=== PATIENT | female | born 1930 | race Asian ===

== ENCOUNTER 2017-02-08 12:24 | Inpatient (IN) | payer MEDICARE, MEDICAID ==
[~2017-02-08] VITALS: Ht 152.4 cm; Wt 72.4 kg
[~2017-02-08 12:24] MED LIST: AMLO-512 PO; BACTDSB PO; CALC500T62 PO; DOCU100C19 PO; ESCI20TA PO; FAMO-39 PO; HYDR25TA PO; LOVA40TA2 PO; MIRT30 PO; MOM30 PO; OLME40 PO
[2017-02-08] MEDS ORDERED: 0.9% SODIUM CHLORIDE 10 ML SYRINGE IVP PRN ×2 (13:15→16:00)
[2017-02-08 13:17] LABS: GLUCOSE,POINT OF CARE 177 MG/DL (70-110)
[2017-02-08 13:34] LABS: BASOPHILS % (AUTO) 0.4 % (0.0-2.0); EOSINOPHILS % (AUTO) 0.1 % (1.0-6.0); HEMATOCRIT 39.9 % (36-46); HEMOGLOBIN 13.2 g/dL (12.0-16.0); LYMPHOCYTES # (AUTO) 1.3 K/uL (1.0-4.8); LYMPHOCYTES % (AUTO) 10.9 % (22.0-44.0); MEAN CORPUSCULAR HEMOGLOBIN 30.1 pg (26.0-34.0); MEAN CORPUSCULAR HGB CONC 33.1 G/dL (31.0-37.0); MEAN CORPUSCULAR VOLUME 91 fL (80-100); MONOCYTES # (AUTO) 0.6 K/uL (0.1-1.0); MONOCYTES % (AUTO) 4.6 % (2.0-9.0); NEUTROPHILS # (AUTO) 10.3 K/uL (1.8-7.7); PLATELET COUNT (AUTO) 195 K/uL (150-450); RED CELL DISTRIBUTION WIDTH 15.2 % (11.5-14.5); WHITE BLOOD COUNT (AUTO) 12.3 K/uL (4.5-11.0)
[2017-02-08 13:54] LABS: ANION GAP 6 mmol/L (8-16); CALCIUM, TOTAL 9.1 mg/dL (8.8-10.5); CARBON DIOXIDE 38 mmol/L (22-29); CHLORIDE 98 mmol/L (98-107); CREATININE 2.14 mg/dL (0.60-1.30); GLOMERULAR FILTR. RATE CALC 22 mL/min (>60); POTASSIUM 3.3 mmol/L (3.5-5.1); SODIUM SERUM 142 mmol/L (136-145); UREA NITROGEN, BLOOD 38 mg/dL (7-18)
[2017-02-08 13:59] LABS: ALANINE AMINOTRANSFERASE 75 U/L (12-78); ASPARTATE AMINOTRANSFERASE 48 U/L (15-37); BILIRUBIN,TOTAL 0.7 mg/dL (0.1-1.0); TOTAL PROTEIN, SERUM 7.5 g/dL (6.4-8.2)
[2017-02-08 14:07] LABS: B-TYPE NATRIURETIC PEPTIDE 108 pg/mL (0-100)
[2017-02-08 14:18] LABS: LACTIC ACID 2.2 mmol/L (0.4-2.0)
[2017-02-08] MEDS ORDERED: ACETAMINOPHEN 325 MG RECTAL SUPPOSITORY PR ONE (14:45)
[2017-02-08] MEDS ORDERED: VANCOMYCIN HCL 1 GM/D5% WATER 200 ML IV ONE (14:45)
[2017-02-08] MEDS ORDERED: PIPERACILLIN/TAZO 3.375 GM/D5W 50 ML IV ONE (14:45)
[2017-02-08 15:28] LABS: REFLEX LACTIC ACID? YES YES
[2017-02-08] MEDS ORDERED: ONDANSETRON HCL 4 MG/2 ML VIAL IVP PRN (16:00)
[2017-02-08] MEDS ORDERED: ACETAMINOPHEN 325 MG TABLET PO PRN (16:00)
[2017-02-08 16:07] LABS: ABG A-A DIFF O2 228.6 mmHg (10-20.0); ABG HCO3 30.9 mmol/L (22.0-26.0); ABG OXYHEMOGLOBIN 89.4 % (94.0-100.0); ABG PCO2 58 mmHg (35-45); ABG PH 7.385 (7.35-7.450); ALLEN TEST, BLOOD GAS Positive; TEMPERATURE, FAHRENHEIT, BG 98.6 FAHREN (96.0-98.6)
[2017-02-08] MEDS ORDERED: POTASSIUM CHLORIDE 20 MEQ ER TABLET PO ONE (18:45)
[2017-02-08 19:07] VITALS: BP 119/59
[2017-02-08] MEDS ORDERED: OXYGEN THERAPY IH SCH (20:00)
[2017-02-09] VITALS (8 sets, daily range): BP systolic 100–134; BP diastolic 50–69
[2017-02-09] MEDS ORDERED: PIPERACILLIN SODIUM/TAZOBACTAM 2.25 GM in DEXTROSE 5%-WATER 50 ML IV SCH ×2
[2017-02-09] MEDS ORDERED: SODIUM CHLORIDE 0.9% 250 ML IV ONE (00:40)
[2017-02-09 07:36] LABS: CALCIUM, TOTAL 8.4 mg/dL (8.8-10.5); CREATININE 1.6 mg/dL (0.60-1.30); POTASSIUM 3.5 mmol/L (3.5-5.1)
[2017-02-09 08:41] LABS: APPEARANCE,URINE TURBID (CLEAR); GLUCOSE, URINE (UA) NEGATIVE (NEGATIVE); KETONES,URINE NEGATIVE (NEGATIVE); LEUKOCYTE ESTERASE ,URINE NEGATIVE (NEGATIVE); OCCULT BLOOD,URINE TRACE (NEGATIVE); PROTEIN,URINE POS 1+ (NEGATIVE)
[2017-02-09 08:50] LABS: ADD UA MICROSCOPIC YES
[2017-02-09 08:51] LABS: RBC,URINE 0-2 /HPF (0-2); SQUAMOUS EPITHELIAL CELL,UR Few /LPF (None Seen); WBC,URINE None Seen /HPF (0-5)
[2017-02-09 09:26] LABS: BASOPHILS # (AUTO) 0.02 K/uL (0.00-0.20); BASOPHILS % (AUTO) 0.2 % (0.0-2.0); EOSINOPHILS # (AUTO) 0.03 K/uL (0.00-0.70); EOSINOPHILS % (AUTO) 0.33 % (1.0-6.0); HEMATOCRIT 38.4 % (36-46); HEMOGLOBIN 12.4 g/dL (12.0-16.0); LYMPHOCYTES # (AUTO) 0.8 K/uL (1.0-4.8); LYMPHOCYTES % (AUTO) 7.9 % (22.0-44.0); MEAN CORPUSCULAR HEMOGLOBIN 29.9 pg (26.0-34.0); MEAN CORPUSCULAR HGB CONC 32.2 G/dL (31.0-37.0); MEAN CORPUSCULAR VOLUME 93 fL (80-100); MONOCYTES # (AUTO) 0.6 K/uL (0.1-1.0); MONOCYTES % (AUTO) 5.6 % (2.0-9.0); NEUTROPHILS # (AUTO) 8.4 K/uL (1.8-7.7); PLATELET COUNT (AUTO) 179 K/uL (150-450); RED BLOOD CELL COUNT(AUTO) 4.13 MIL/uL (4.00-5.20); RED CELL DISTRIBUTION WIDTH 14.6 % (11.5-14.5); WHITE BLOOD COUNT (AUTO) 9.7 K/uL (4.5-11.0)
[2017-02-09 09:58] LABS: RBC MORPHOLOGY COMMENT NORMAL RBC MORPH
[2017-02-09] MEDS ORDERED: IPRATROPIUM BROMIDE 0.5 MG/2.5 ML NEB SOLUTION NEB PRN (14:00)
[2017-02-09] MEDS ORDERED: ALBUTEROL SULFATE 2.5 MG/0.5 ML NEB SOLUTION NEB PRN (14:00)
[2017-02-09] MEDS ORDERED: LOVASTATIN 20 MG TABLET PO SCH (15:00)
[2017-02-09] MEDS: ALBUTEROL SULFATE 2.5 MG/0.5 ML NEB SOLUTION NEB SCH ×2 (15:06→19:50)
[2017-02-09] MEDS: IPRATROPIUM BROMIDE 0.5 MG/2.5 ML NEB SOLUTION NEB SCH ×2 (15:06→19:50)
[2017-02-09] MEDS: MAGNESIUM HYDROXIDE SUSPENSION 30 ML UDCUP PO SCH (15:33)
[2017-02-09] MEDS: DOCUSATE SODIUM 100 MG CAPSULE PO SCH ×2 (15:34→20:20)
[2017-02-09] MEDS: AmLODIPine BESYLATE 10 MG TABLET PO SCH (15:34)
[2017-02-09] MEDS: CALCIUM OYSTER SHELL 500 MG TABLET PO SCH ×2 (15:34→20:20)
[2017-02-09] MEDS: OLMESARTAN MEDOXOMIL 40 MG TABLET PO SCH (15:34)
[2017-02-09] MEDS: FAMOTIDINE 20 MG TABLET PO SCH (15:34)
[2017-02-09] MEDS: MIRTAZAPINE 30 MG TABLET PO SCH (20:20)
[2017-02-09] MEDS: ESCITALOPRAM OXALATE 20 MG TABLET PO SCH (20:20)
[2017-02-10] MEDS: IPRATROPIUM BROMIDE 0.5 MG/2.5 ML NEB SOLUTION NEB SCH ×4 (02:27→19:46)
[2017-02-10] MEDS: ALBUTEROL SULFATE 2.5 MG/0.5 ML NEB SOLUTION NEB SCH ×4 (02:27→19:46)
[2017-02-10 04:36] VITALS: BP 120/56
[2017-02-10 07:20] LABS: BASOPHILS % (AUTO) 0.1 % (0.0-2.0); EOSINOPHILS % (AUTO) 1.1 % (1.0-6.0); HEMATOCRIT 36.7 % (36-46); HEMOGLOBIN 12.2 g/dL (12.0-16.0); LYMPHOCYTES % (AUTO) 11.3 % (22.0-44.0); MEAN CORPUSCULAR HEMOGLOBIN 30.6 pg (26.0-34.0); MEAN CORPUSCULAR HGB CONC 33.4 G/dL (31.0-37.0); MEAN CORPUSCULAR VOLUME 92 fL (80-100); MONOCYTES # (AUTO) 0.8 K/uL (0.1-1.0); MONOCYTES % (AUTO) 9.6 % (2.0-9.0); NEUTROPHILS # (AUTO) 6.8 K/uL (1.8-7.7); NEUTROPHILS % (AUTO) 77.9 % (40.0-70.0); PLATELET COUNT (AUTO) 201 K/uL (150-450); RED CELL DISTRIBUTION WIDTH 14.7 % (11.5-14.5); WHITE BLOOD COUNT (AUTO) 8.7 K/uL (4.5-11.0)
[2017-02-10 07:41] LABS: ALBUMIN 2.4 g/dL (3.4-5.0); BILIRUBIN,TOTAL 0.8 mg/dL (0.1-1.0); CALCIUM, TOTAL 8.6 mg/dL (8.8-10.5); CHOL/HDL RATIO 2.3 (3.9-5.7); CREATININE 1.45 mg/dL (0.60-1.30); MAGNESIUM 2.8 mg/dL (1.80-2.40); POTASSIUM 3.7 mmol/L (3.5-5.1); TOTAL PROTEIN, SERUM 6.8 g/dL (6.4-8.2)
[2017-02-10 07:58] VITALS: BP 104/44
[2017-02-10 08:38] LABS: HEMOGLOBIN A1C 6.9 % (4.5-6.2)
[2017-02-10 09:30] VITALS: BP 112/74
[2017-02-10] MEDS: FAMOTIDINE 20 MG TABLET PO SCH (09:31)
[2017-02-10] MEDS: DOCUSATE SODIUM 100 MG CAPSULE PO SCH ×2 (09:31→19:59)
[2017-02-10] MEDS: CALCIUM OYSTER SHELL 500 MG TABLET PO SCH ×2 (09:31→19:59)
[2017-02-10] MEDS: MAGNESIUM HYDROXIDE SUSPENSION 30 ML UDCUP PO SCH (09:31)
[2017-02-10] MEDS: OLMESARTAN MEDOXOMIL 40 MG TABLET PO SCH (09:32)
[2017-02-10] MEDS: AmLODIPine BESYLATE 10 MG TABLET PO SCH (09:32)
[2017-02-10 11:52] VITALS: BP 109/63
[2017-02-10 15:50] VITALS: BP 105/59
[2017-02-10] MEDS: LOVASTATIN 20 MG TABLET PO SCH (18:20)
[2017-02-10] MEDS: MIRTAZAPINE 30 MG TABLET PO SCH (19:59)
[2017-02-10] MEDS: ACETAMINOPHEN 325 MG TABLET PO PRN (19:59)
[2017-02-10] MEDS: ESCITALOPRAM OXALATE 20 MG TABLET PO SCH (19:59)
[2017-02-10] MEDS: BUDESONIDE 0.5 MG/2 ML NEB SOLUTION NEB SCH (20:03)
[2017-02-10 20:08] VITALS: BP 106/56
[2017-02-11] VITALS (7 sets, daily range): BP systolic 106–133; BP diastolic 53–66
[2017-02-11] MEDS: ALBUTEROL SULFATE 2.5 MG/0.5 ML NEB SOLUTION NEB SCH ×4 (01:44→20:15)
[2017-02-11] MEDS: IPRATROPIUM BROMIDE 0.5 MG/2.5 ML NEB SOLUTION NEB SCH ×4 (01:44→20:15)
[2017-02-11] MEDS: BUDESONIDE 0.5 MG/2 ML NEB SOLUTION NEB SCH ×2 (08:29→22:28)
[2017-02-11] MEDS: MAGNESIUM HYDROXIDE SUSPENSION 30 ML UDCUP PO SCH (08:42)
[2017-02-11] MEDS: DOCUSATE SODIUM 100 MG CAPSULE PO SCH ×2 (08:42→21:47)
[2017-02-11] MEDS: FAMOTIDINE 20 MG TABLET PO SCH (08:42)
[2017-02-11] MEDS: CALCIUM OYSTER SHELL 500 MG TABLET PO SCH ×2 (08:42→21:47)
[2017-02-11] MEDS: OLMESARTAN MEDOXOMIL 40 MG TABLET PO SCH (08:45)
[2017-02-11] MEDS: AmLODIPine BESYLATE 10 MG TABLET PO SCH (08:45)
[2017-02-11] MEDS: LOVASTATIN 20 MG TABLET PO SCH (18:11)
[2017-02-11] MEDS: ESCITALOPRAM OXALATE 20 MG TABLET PO SCH (21:47)
[2017-02-11] MEDS: MIRTAZAPINE 30 MG TABLET PO SCH (21:47)
[2017-02-12] VITALS (7 sets, daily range): BP systolic 103–146; BP diastolic 47–69
[2017-02-12] MEDS: ALBUTEROL SULFATE 2.5 MG/0.5 ML NEB SOLUTION NEB SCH ×4 (02:44→21:06)
[2017-02-12] MEDS: IPRATROPIUM BROMIDE 0.5 MG/2.5 ML NEB SOLUTION NEB SCH ×4 (02:44→21:06)
[2017-02-12] MEDS: BUDESONIDE 0.5 MG/2 ML NEB SOLUTION NEB SCH ×2 (07:43→21:07)
[2017-02-12 08:49] LABS: BASOPHILS % (AUTO) 0.5 % (0.0-2.0); EOSINOPHILS % (AUTO) 0.2 % (1.0-6.0); HEMATOCRIT 36.8 % (36-46); HEMOGLOBIN 12.2 g/dL (12.0-16.0); LYMPHOCYTES # (AUTO) 0.8 K/uL (1.0-4.8); LYMPHOCYTES % (AUTO) 8.3 % (22.0-44.0); MEAN CORPUSCULAR HEMOGLOBIN 30.1 pg (26.0-34.0); MEAN CORPUSCULAR HGB CONC 33.1 G/dL (31.0-37.0); MEAN CORPUSCULAR VOLUME 91 fL (80-100); MONOCYTES # (AUTO) 0.9 K/uL (0.1-1.0); MONOCYTES % (AUTO) 9.6 % (2.0-9.0); NEUTROPHILS % (AUTO) 81.4 % (40.0-70.0); PLATELET COUNT (AUTO) 256 K/uL (150-450); RED BLOOD CELL COUNT(AUTO) 4.04 MIL/uL (4.00-5.20); RED CELL DISTRIBUTION WIDTH 14.8 % (11.5-14.5); WHITE BLOOD COUNT (AUTO) 9.8 K/uL (4.5-11.0)
[2017-02-12 08:55] LABS: INR 0.9 (0.9-1.1)
[2017-02-12] MEDS: DOCUSATE SODIUM 100 MG CAPSULE PO SCH ×2 (09:00→21:00)
[2017-02-12] MEDS: FAMOTIDINE 20 MG TABLET PO SCH (09:00)
[2017-02-12] MEDS: CALCIUM OYSTER SHELL 500 MG TABLET PO SCH ×2 (09:00→21:00)
[2017-02-12] MEDS: OLMESARTAN MEDOXOMIL 40 MG TABLET PO SCH (09:00)
[2017-02-12] MEDS ORDERED: MAGNESIUM HYDROXIDE SUSPENSION 30 ML UDCUP PO PRN (09:00)
[2017-02-12] MEDS: AmLODIPine BESYLATE 10 MG TABLET PO SCH (09:00)
[2017-02-12] MEDS: ACETAMINOPHEN 325 MG TABLET PO PRN ×2 (09:21→18:23)
[2017-02-12 09:53] LABS: ALBUMIN 2.4 g/dL (3.4-5.0); BILIRUBIN,TOTAL 0.7 mg/dL (0.1-1.0); CALCIUM, TOTAL 8.5 mg/dL (8.8-10.5); CREATININE 1.22 mg/dL (0.60-1.30); POTASSIUM 4.3 mmol/L (3.5-5.1); TOTAL PROTEIN, SERUM 6.3 g/dL (6.4-8.2)
[2017-02-12 10:26] LABS: MAGNESIUM 3.7 mg/dL (1.80-2.40)
[2017-02-12 13:31] LABS: APPEARANCE,UNSPUN,BODY FLUID CLEAR (CLEAR); COLOR,BODY FLUID YELLOW (LT YELLOW)
[2017-02-12] MEDS: DEXTROSE 5%-WATER 1,000 ML IV SCH (15:04)
[2017-02-12] MEDS: LOVASTATIN 20 MG TABLET PO SCH ×2 (18:00→18:22)
[2017-02-12] MEDS: MIRTAZAPINE 30 MG TABLET PO SCH (21:00)
[2017-02-12] MEDS: ESCITALOPRAM OXALATE 20 MG TABLET PO SCH (21:00)
[2017-02-13] MEDS: IPRATROPIUM BROMIDE 0.5 MG/2.5 ML NEB SOLUTION NEB SCH ×4 (02:04→20:49)
[2017-02-13] MEDS: ALBUTEROL SULFATE 2.5 MG/0.5 ML NEB SOLUTION NEB SCH ×4 (02:04→20:49)
[2017-02-13 04:53] VITALS: BP 131/62
[2017-02-13 06:50] LABS: BASOPHILS # (AUTO) 0.01 K/uL (0.00-0.20); BASOPHILS % (AUTO) 0.1 % (0.0-2.0); EOSINOPHILS # (AUTO) 0.02 K/uL (0.00-0.70); HEMATOCRIT 38.5 % (36-46); HEMOGLOBIN 12.1 g/dL (12.0-16.0); LYMPHOCYTES # (AUTO) 0.8 K/uL (1.0-4.8); MEAN CORPUSCULAR HEMOGLOBIN 29.7 pg (26.0-34.0); MEAN CORPUSCULAR HGB CONC 31.4 G/dL (31.0-37.0); MEAN CORPUSCULAR VOLUME 95 fL (80-100); MONOCYTES # (AUTO) 0.4 K/uL (0.1-1.0); MONOCYTES % (AUTO) 3.7 % (2.0-9.0); NEUTROPHILS # (AUTO) 9.7 K/uL (1.8-7.7); PLATELET COUNT (AUTO) 269 K/uL (150-450); RED BLOOD CELL COUNT(AUTO) 4.07 MIL/uL (4.00-5.20); RED CELL DISTRIBUTION WIDTH 15.2 % (11.5-14.5); WHITE BLOOD COUNT (AUTO) 10.8 K/uL (4.5-11.0)
[2017-02-13 06:59] LABS: CALCIUM, TOTAL 8.8 mg/dL (8.8-10.5); CREATININE 1.18 mg/dL (0.60-1.30); MAGNESIUM 3.3 mg/dL (1.80-2.40)
[2017-02-13 07:05] LABS: RBC MORPHOLOGY COMMENT NORMAL RBC MORPH
[2017-02-13 07:27] VITALS: BP 136/65
[2017-02-13] MEDS: AmLODIPine BESYLATE 10 MG TABLET PO SCH (08:46)
[2017-02-13] MEDS: CALCIUM OYSTER SHELL 500 MG TABLET PO SCH ×2 (08:46→19:57)
[2017-02-13] MEDS: DOCUSATE SODIUM 100 MG CAPSULE PO SCH ×2 (08:46→19:57)
[2017-02-13] MEDS: FAMOTIDINE 20 MG TABLET PO SCH (08:46)
[2017-02-13] MEDS: OLMESARTAN MEDOXOMIL 40 MG TABLET PO SCH (08:46)
[2017-02-13] MEDS: BUDESONIDE 0.5 MG/2 ML NEB SOLUTION NEB SCH ×2 (09:18→20:49)
[2017-02-13] MEDS: DEXTROSE 5%-WATER 1,000 ML IV SCH (10:46)
[2017-02-13] MEDS: OXYGEN THERAPY IH SCH ×2 (10:46→20:50)
[2017-02-13 11:18] VITALS: BP 136/74
[2017-02-13 15:31] VITALS: BP 130/63
[2017-02-13] MEDS: LOVASTATIN 20 MG TABLET PO SCH (18:27)
[2017-02-13 19:43] VITALS: BP 117/60
[2017-02-13] MEDS: MIRTAZAPINE 30 MG TABLET PO SCH (19:57)
[2017-02-13] MEDS: ESCITALOPRAM OXALATE 20 MG TABLET PO SCH (19:57)
[2017-02-13 23:17] LABS: GLUCOSE, BODY FLUID,REF 152 mg/dL; LDH,BODY FLUID,REF <10 IU/L; TOTAL PROTEIN,BODY FLUID,REF 3.3 g/dL
[2017-02-14] VITALS (7 sets, daily range): BP systolic 107–129; BP diastolic 55–76
[2017-02-14] MEDS: PIPERACILLIN/TAZO 3.375 GM/D5W 50 ML IV SCH ×5 (02:01→23:14)
[2017-02-14] MEDS: ALBUTEROL SULFATE 2.5 MG/0.5 ML NEB SOLUTION NEB SCH ×4 (02:57→20:02)
[2017-02-14] MEDS: IPRATROPIUM BROMIDE 0.5 MG/2.5 ML NEB SOLUTION NEB SCH ×4 (02:57→20:02)
[2017-02-14] MEDS: OXYGEN THERAPY IH SCH ×2 (08:29→20:00)
[2017-02-14] MEDS: BUDESONIDE 0.5 MG/2 ML NEB SOLUTION NEB SCH ×2 (08:30→20:02)
[2017-02-14] MEDS: OLMESARTAN MEDOXOMIL 40 MG TABLET PO SCH (09:00)
[2017-02-14] MEDS: CALCIUM OYSTER SHELL 500 MG TABLET PO SCH (09:59)
[2017-02-14] MEDS: FAMOTIDINE 20 MG TABLET PO SCH (09:59)
[2017-02-14] MEDS: DOCUSATE SODIUM 100 MG CAPSULE PO SCH (09:59)
[2017-02-14] MEDS: AmLODIPine BESYLATE 10 MG TABLET PO SCH (09:59)
[2017-02-14 14:24] LABS: ABG A-A DIFF O2 100.1 mmHg (10-20.0); ABG BASE EXCESS 12.7 mmol/L (-2.0-3.0); ABG HCO3 33.6 mmol/L (22.0-26.0); ABG OXYHEMOGLOBIN 90.8 % (94.0-100.0); ABG PCO2 76 mmHg (35-45); ABG PH 7.324 (7.35-7.450); ALLEN TEST, BLOOD GAS Positive; TEMPERATURE, FAHRENHEIT, BG 98.6 FAHREN (96.0-98.6)
[2017-02-15] MEDS ORDERED: SODIUM CHLORIDE 0.9% 250 ML IV ONE (00:09)
[2017-02-15] MEDS: MIRTAZAPINE 30 MG TABLET PO SCH (00:17)
[2017-02-15] MEDS: CALCIUM OYSTER SHELL 500 MG TABLET PO SCH (00:17)
[2017-02-15] MEDS: LOVASTATIN 20 MG TABLET PO SCH (00:17)
[2017-02-15] MEDS: ESCITALOPRAM OXALATE 20 MG TABLET PO SCH (00:17)
[2017-02-15] MEDS: DOCUSATE SODIUM 100 MG CAPSULE PO SCH (00:17)
[2017-02-15] MEDS ORDERED: MAGNESIUM HYDROXIDE SUSPENSION 30 ML UDCUP NG PRN (00:45)
[2017-02-15] MEDS ORDERED: ACETAMINOPHEN 650 MG/20.3 ML SOLUTION UDCUP NG PRN (01:00)
[2017-02-15] MEDS: ALBUTEROL SULFATE 2.5 MG/0.5 ML NEB SOLUTION NEB SCH ×4 (02:58→20:09)
[2017-02-15] MEDS: IPRATROPIUM BROMIDE 0.5 MG/2.5 ML NEB SOLUTION NEB SCH ×4 (02:58→20:09)
[2017-02-15] MEDS: PIPERACILLIN/TAZO 3.375 GM/D5W 50 ML IV SCH ×4 (05:29→23:36)
[2017-02-15 06:14] VITALS: BP 131/73
[2017-02-15 07:53] VITALS: BP 130/63
[2017-02-15] MEDS: OXYGEN THERAPY IH SCH ×2 (08:43→21:00)
[2017-02-15] MEDS: CALCIUM OYSTER SHELL 500 MG TABLET NG SCH ×2 (08:58→21:01)
[2017-02-15] MEDS: AmLODIPine BESYLATE 10 MG TABLET NG SCH (08:58)
[2017-02-15] MEDS: DOCUSATE SODIUM 100 MG CAPSULE NG SCH ×2 (08:59→21:00)
[2017-02-15] MEDS: OLMESARTAN MEDOXOMIL 40 MG TABLET NG SCH (08:59)
[2017-02-15] MEDS: FAMOTIDINE 20 MG TABLET NG SCH (08:59)
[2017-02-15] MEDS: BUDESONIDE 0.5 MG/2 ML NEB SOLUTION NEB SCH ×2 (09:06→20:09)
[2017-02-15 11:50] VITALS: BP 128/66
[2017-02-15] MEDS ORDERED: BISACODYL 10 MG RECTAL RECTAL SUPPOSITORY PR PRN (15:30)
[2017-02-15 16:42] VITALS: BP 126/60
[2017-02-15] MEDS: LOVASTATIN 20 MG TABLET NG SCH (17:36)
[2017-02-15 19:51] VITALS: BP 129/66
[2017-02-15] MEDS: ESCITALOPRAM OXALATE 20 MG TABLET NG SCH (21:00)
[2017-02-15] MEDS: MIRTAZAPINE 30 MG TABLET NG SCH (21:01)
[2017-02-15 23:50] VITALS: BP 127/65
[2017-02-16] MEDS: ALBUTEROL SULFATE 2.5 MG/0.5 ML NEB SOLUTION NEB SCH ×4 (01:31→20:31)
[2017-02-16] MEDS: IPRATROPIUM BROMIDE 0.5 MG/2.5 ML NEB SOLUTION NEB SCH ×4 (01:31→20:31)
[2017-02-16 04:25] VITALS: BP 142/63
[2017-02-16] MEDS: PIPERACILLIN/TAZO 3.375 GM/D5W 50 ML IV SCH ×3 (05:32→17:07)
[2017-02-16 07:39] VITALS: BP 137/75
[2017-02-16 07:42] LABS: HEMATOCRIT 36.1 % (36-46); HEMOGLOBIN 11.6 g/dL (12.0-16.0); LYMPHOCYTES # (AUTO) 0.5 K/uL (1.0-4.8); LYMPHOCYTES % (AUTO) 4.3 % (22.0-44.0); MEAN CORPUSCULAR HEMOGLOBIN 29.9 pg (26.0-34.0); MEAN CORPUSCULAR VOLUME 93 fL (80-100); MONOCYTES # (AUTO) 0.4 K/uL (0.1-1.0); MONOCYTES % (AUTO) 3.6 % (2.0-9.0); NEUTROPHILS # (AUTO) 10.8 K/uL (1.8-7.7); PLATELET COUNT (AUTO) 355 K/uL (150-450); RED BLOOD CELL COUNT(AUTO) 3.87 MIL/uL (4.00-5.20); RED CELL DISTRIBUTION WIDTH 14.7 % (11.5-14.5); WHITE BLOOD COUNT (AUTO) 11.9 K/uL (4.5-11.0)
[2017-02-16 08:04] LABS: CALCIUM, TOTAL 8.8 mg/dL (8.8-10.5); CREATININE 1.13 mg/dL (0.60-1.30); MAGNESIUM 2.9 mg/dL (1.80-2.40); POTASSIUM 3.8 mmol/L (3.5-5.1)
[2017-02-16 08:08] LABS: NEUTROPHILS % (AUTO) 91.1 % (40.0-70.0)
[2017-02-16] MEDS: BUDESONIDE 0.5 MG/2 ML NEB SOLUTION NEB SCH ×2 (08:39→20:31)
[2017-02-16] MEDS: OXYGEN THERAPY IH SCH ×2 (08:39→20:31)
[2017-02-16] MEDS: OLMESARTAN MEDOXOMIL 40 MG TABLET NG SCH (11:07)
[2017-02-16] MEDS: CALCIUM OYSTER SHELL 500 MG TABLET NG SCH ×2 (11:07→20:56)
[2017-02-16] MEDS: DOCUSATE SODIUM 100 MG CAPSULE NG SCH ×2 (11:07→20:55)
[2017-02-16] MEDS: FAMOTIDINE 20 MG TABLET NG SCH (11:08)
[2017-02-16] MEDS: AmLODIPine BESYLATE 10 MG TABLET NG SCH (11:08)
[2017-02-16 11:38] VITALS: BP 133/93
[2017-02-16 15:54] VITALS: BP 142/68
[2017-02-16 16:58] LABS: ABG A-A DIFF O2 136.8 mmHg (10-20.0); ABG BASE EXCESS 18.7 mmol/L (-2.0-3.0); ABG HCO3 39.1 mmol/L (22.0-26.0); ABG OXYHEMOGLOBIN 90.7 % (94.0-100.0); ABG PH 7.388 (7.35-7.450); TEMPERATURE, FAHRENHEIT, BG 98.6 FAHREN (96.0-98.6)
[2017-02-16 17:04] LABS: ABG PCO2 74 mmHg (35-45)
[2017-02-16 17:05] LABS: ALLEN TEST, BLOOD GAS Positive; IPAP, BG 16 cm H2O
[2017-02-16] MEDS: LOVASTATIN 20 MG TABLET NG SCH (17:07)
[2017-02-16 19:54] VITALS: BP 132/71
[2017-02-16] MEDS: ESCITALOPRAM OXALATE 20 MG TABLET NG SCH (20:55)
[2017-02-16] MEDS: MIRTAZAPINE 30 MG TABLET NG SCH (20:56)
[2017-02-16 23:52] VITALS: BP 124/70
[2017-02-17] MEDS: PIPERACILLIN/TAZO 3.375 GM/D5W 50 ML IV SCH ×4 (00:07→16:32)
[2017-02-17] MEDS: ALBUTEROL SULFATE 2.5 MG/0.5 ML NEB SOLUTION NEB SCH ×4 (02:16→20:29)
[2017-02-17] MEDS: IPRATROPIUM BROMIDE 0.5 MG/2.5 ML NEB SOLUTION NEB SCH ×4 (02:16→20:29)
[2017-02-17 04:18] VITALS: BP 125/70
[2017-02-17 07:24] VITALS: BP 145/73
[2017-02-17] MEDS: BUDESONIDE 0.5 MG/2 ML NEB SOLUTION NEB SCH ×2 (09:13→20:29)
[2017-02-17] MEDS: CALCIUM OYSTER SHELL 500 MG TABLET NG SCH ×2 (09:15→20:56)
[2017-02-17] MEDS: OXYGEN THERAPY IH SCH ×2 (09:15→20:29)
[2017-02-17] MEDS: OLMESARTAN MEDOXOMIL 40 MG TABLET NG SCH (09:15)
[2017-02-17] MEDS: AmLODIPine BESYLATE 10 MG TABLET NG SCH (09:15)
[2017-02-17] MEDS: DOCUSATE SODIUM 100 MG CAPSULE NG SCH ×2 (09:15→20:56)
[2017-02-17] MEDS: FAMOTIDINE 20 MG TABLET NG SCH (09:15)
[2017-02-17 11:29] VITALS: BP 138/83
[2017-02-17 15:45] VITALS: BP 148/80
[2017-02-17] MEDS: LOVASTATIN 20 MG TABLET NG SCH (16:33)
[2017-02-17] MEDS ORDERED: DEXTROSE 50%-WATER 25 GM/50 ML SYRINGE IVP PRN (17:15)
[2017-02-17] MEDS: INSULIN REGULAR, HUMAN 100 UNITS/ML SQ PRN (18:32)
[2017-02-17 20:37] VITALS: BP 145/78
[2017-02-17] MEDS: MIRTAZAPINE 30 MG TABLET NG SCH (20:56)
[2017-02-17] MEDS: ESCITALOPRAM OXALATE 20 MG TABLET NG SCH (20:56)
[2017-02-18] VITALS (7 sets, daily range): BP systolic 121–144; BP diastolic 58–78
[2017-02-18] MEDS: PIPERACILLIN/TAZO 3.375 GM/D5W 50 ML IV SCH ×4 (00:26→17:59)
[2017-02-18] MEDS: INSULIN REGULAR, HUMAN 100 UNITS/ML SQ PRN ×3 (00:26→18:04)
[2017-02-18] MEDS: IPRATROPIUM BROMIDE 0.5 MG/2.5 ML NEB SOLUTION NEB SCH ×4 (02:41→19:45)
[2017-02-18] MEDS: ALBUTEROL SULFATE 2.5 MG/0.5 ML NEB SOLUTION NEB SCH ×4 (02:41→19:45)
[2017-02-18] MEDS ORDERED: SODIUM CHLORIDE 0.9% 250 ML IV ONE (07:09)
[2017-02-18 07:43] LABS: GLUCOSE,POINT OF CARE 191 MG/DL (70-110)
[2017-02-18] MEDS: DOCUSATE SODIUM 100 MG CAPSULE NG SCH ×2 (08:05→20:55)
[2017-02-18] MEDS: CALCIUM OYSTER SHELL 500 MG TABLET NG SCH ×2 (08:05→20:55)
[2017-02-18] MEDS: OLMESARTAN MEDOXOMIL 40 MG TABLET NG SCH (08:05)
[2017-02-18] MEDS: OXYGEN THERAPY IH SCH ×2 (08:05→19:46)
[2017-02-18] MEDS: FAMOTIDINE 20 MG TABLET NG SCH (08:05)
[2017-02-18] MEDS: AmLODIPine BESYLATE 10 MG TABLET NG SCH (08:05)
[2017-02-18] MEDS: BUDESONIDE 0.5 MG/2 ML NEB SOLUTION NEB SCH ×2 (08:13→19:57)
[2017-02-18 14:53] LABS: GLUCOSE,POINT OF CARE 200 MG/DL (70-110)
[2017-02-18] MEDS: LOVASTATIN 20 MG TABLET NG SCH (17:59)
[2017-02-18 19:07] LABS: GLUCOSE,POINT OF CARE 175 MG/DL (70-110)
[2017-02-18] MEDS: MIRTAZAPINE 30 MG TABLET NG SCH (20:55)
[2017-02-18] MEDS: ESCITALOPRAM OXALATE 20 MG TABLET NG SCH (20:55)
[2017-02-19] MEDS: PIPERACILLIN/TAZO 3.375 GM/D5W 50 ML IV SCH ×4 (00:05→17:39)
[2017-02-19] MEDS: INSULIN REGULAR, HUMAN 100 UNITS/ML SQ PRN ×3 (00:12→12:13)
[2017-02-19 00:23] LABS: GLUCOSE COMMENT 1 Received Meds; GLUCOSE,POINT OF CARE 162 MG/DL (70-110)
[2017-02-19 00:23] LABS: GLUCOSE COMMENT 1 Received Meds; GLUCOSE,POINT OF CARE 201 MG/DL (70-110)
[2017-02-19 00:23] LABS: GLUCOSE COMMENT 1 Received Meds; GLUCOSE,POINT OF CARE 191 MG/DL (70-110)
[2017-02-19] MEDS: ALBUTEROL SULFATE 2.5 MG/0.5 ML NEB SOLUTION NEB SCH ×3 (01:58→14:58)
[2017-02-19] MEDS: IPRATROPIUM BROMIDE 0.5 MG/2.5 ML NEB SOLUTION NEB SCH ×3 (01:58→14:57)
[2017-02-19 05:08] VITALS: BP 135/57
[2017-02-19 08:00] VITALS: BP 129/67
[2017-02-19] MEDS: OLMESARTAN MEDOXOMIL 40 MG TABLET NG SCH (08:45)
[2017-02-19] MEDS: OXYGEN THERAPY IH SCH (08:45)
[2017-02-19] MEDS: AmLODIPine BESYLATE 10 MG TABLET NG SCH (08:45)
[2017-02-19] MEDS: DOCUSATE SODIUM 100 MG CAPSULE NG SCH (08:45)
[2017-02-19] MEDS: FAMOTIDINE 20 MG TABLET NG SCH (08:46)
[2017-02-19] MEDS: CALCIUM OYSTER SHELL 500 MG TABLET NG SCH (08:46)
[2017-02-19] MEDS: BUDESONIDE 0.5 MG/2 ML NEB SOLUTION NEB SCH (08:52)
[2017-02-19 12:01] VITALS: BP 117/61
[2017-02-19 16:06] VITALS: BP 134/67
[2017-02-20 08:02] LABS: GLUCOSE COMMENT 1 Received Meds; GLUCOSE,POINT OF CARE 203 MG/DL (70-110)
[2017-02-20 08:03] LABS: GLUCOSE COMMENT 1 Received Meds; GLUCOSE,POINT OF CARE 196 MG/DL (70-110)
[2017-02-20 08:03] LABS: GLUCOSE COMMENT 1 Received Meds; GLUCOSE,POINT OF CARE 185 MG/DL (70-110)
== END 2017-02-19 18:45 | DRG 871 ==
LOC: EMS 12:27 → 5N 16:04
PROVIDERS: ADMIT Family Medicine; ATTEND Family Medicine
PROC: 0W993ZZ Drainage of Right Pleural Cavity, Percutaneous Approach (ICD-10-PCS; principal; 2017-02-12)
PROC: 0DH67UZ Insertion of Feeding Device into Stomach, Via Natural or Artificial Opening (ICD-10-PCS; 2017-02-15)
PROC: 5A09357 Assistance with Respiratory Ventilation, Less than 24 Consecutive Hours, Continuous Positive Airway Pressure (ICD-10-PCS; 2017-02-17)
DX: A41.9 Sepsis, unspecified organism (principal); J18.9 Pneumonia, unspecified organism; N17.0 Acute kidney failure with tubular necrosis; E43 Unspecified severe protein-calorie malnutrition; I50.33 Acute on chronic diastolic (congestive) heart failure; J96.01 Acute respiratory failure with hypoxia; J96.02 Acute respiratory failure with hypercapnia; J44.0 Chronic obstructive pulmonary disease with (acute) lower respiratory infection; F03.90 Unspecified dementia, unspecified severity, without behavioral disturbance, psychotic disturbance, mood disturbance, and anxiety; I13.0 Hypertensive heart and chronic kidney disease with heart failure and stage 1 through stage 4 chronic kidney disease, or unspecified chronic kidney disease; R13.10 Dysphagia, unspecified; E11.22 Type 2 diabetes mellitus with diabetic chronic kidney disease; E78.5 Hyperlipidemia, unspecified; E66.01 Morbid (severe) obesity due to excess calories; E78.00 Pure hypercholesterolemia, unspecified; N18.9 Chronic kidney disease, unspecified; Z87.440 Personal history of urinary (tract) infections; Z90.49 Acquired absence of other specified parts of digestive tract; Z79.899 Other long term (current) drug therapy; Z68.31 Body mass index [BMI] 31.0-31.9, adult; Z82.49 Family history of ischemic heart disease and other diseases of the circulatory system
CPT/HCPCS: 32555; 71250; 74000; 76942; 82465; 82805; 82945; 82962; 83036; 83605; 83615; 83735; 83986; 84155; 84157; 87015; 87040; 87070; 87081; 87101; 87147; 87205; 88108; 88305; 89051; 93005; 93306; 94640; 94660; 96365; 96366; 96367; 97162; 97165; 97530; 99285; J2543; J3370; J7050; J7060